=== PATIENT | female | born 1975 | race Caucasian/White ===

== ENCOUNTER 2023-02-20 16:56 | Emergency (ER) | payer BC, SELFPAY ==
[2023-02-20 16:57] VITALS: BP 109/68; PULSE 88; RESP 16; TEMP 36.2; O2SAT 99
[2023-02-20 17:01] VITALS: BMI 21.4
[2023-02-20 18:11] VITALS: BP 120/74; PULSE 69; RESP 14; O2SAT 92
[2023-02-20] MEDS: 0.9% Normal Saline 1,000 ML 1000 ML IV (19:15)
--- NOTE | 2023-02-20 19:20 | EKG12_ITS ---
Test Reason : SYNCOPE Blood Pressure : / mmHG Vent. Rate : 057 BPM Atrial Rate : 057 BPM P-R Int : 164 ms QRS Dur : 090 ms QT Int : 438 ms P-R-T Axes : 059 046 040 degrees QTc Int : 426 ms Sinus bradycardia Otherwise normal ECG Confirmed by HERMILA THAKUR, SUJIT ([id number]), editor greeting card COSTA GRIFFIN ([id number]) on 02/23/2023 11:25:02 AM Referred By: Confirmed By:SUJIT CLEANING MD
--- NOTE | 2023-02-20 19:21 | EDS_ITS ---
HPI History of Present Illness Chief Complaint: Syncope Narrative Narrative: Patient presents with lightheadedness when she stands up. She has had a diarrheal illness over the past 4 days, she has had fevers nausea vomiting and watery diarrhea 10-15 episodes per day. This has basically resolved since yesterday although patient still feels quite lightheaded. She was walking on the street and did sustain a syncopal episode, it was witnessed by bystanders and per EMS it seems like a brief loss of consciousness with a relatively rapid full recovery. No reported head injury. Patient does not have a headache. No palpitation patient is denying abdominal pain or any other injuries. [facility] Medical History (Updated 02/20/23 @ 20:[address] Shane Guillory MD) Arthritis Contact with and (suspected) exposure to other viral communicable diseases URI (upper respiratory infection) Home Medications NK 02/20/23 [History Last Taken Unknown] Allergy/AdvReac Type Severity Reaction Status Date / Time No Known Allergies Allergy Unverified 02/06/23 11:23 Family History (Updated 02/06/23 @ 11:27 by Aydee Castellano) Other Cancer Depression Diabetes Heart disease Hypertension Thyroid disorder Surgical History History of tonsillectomy and adenoidectomy Social History Smoking Status: Light Smoker (<10/day) ROS ROS ED ROS Narrative Past medical history: Reviewed Medications: Reviewed Social history: Noncontributory Review of systems: All systems negative except as indicated General: No fever Fevers that resolved. Lightheadedness is present visual changes ENT: No upper airway congestion, normal voice Neck: No neck pain Cardiovascular: No chest pain. No palpitations Respiratory: No shortness of breath or cough Gastrointestinal: GI symptoms that resolved Genitourinary: No dysuria Musculoskeletal: Denies myalgias no difficulty with ambulation Skin: No rash Neurological: No memory loss, confusion or any focal weakness Hematologic: No easy bleeding or easy bruising EXAM Physical Exam Narrative Exam Narrative: Physical exam General: Well nourished, Well developed, No Acute Distress Head: Normocephalic, Atraumatic Eyes: Conjunctiva not pale ENT: Dry mucous membranes Neck: Supple, Nontender, No lymphadenopathy Cardiovascular: Regular rate, Regular rhythm Respiratory: No distress, CTA bilaterally Abdomen: Soft, Nontender, Nondistended Back: Nontender, Normal Inspection. Negative for: CVA tenderness Extremities: Nontender, No edema Skin: Normal color, No rash Neurological: Alert, Normal Strength, Normal Sensation Psychological: Normal affect Const Vital Signs: 02/20/23 16:57 02/20/23 17:07 02/20/23 18:11 Temperature 97.2 F L Temperature Source Temporal Pulse Rate 88 69 Respiratory Rate 16 14 Respiratory Effort Normal Respiratory Pattern Normal Blood Pressure 109/68 120/74 Blood Pressure Mean 81 89 Pulse Ox 99 92 Oxygen Delivery Method Room Air Room Air 02/20/23 19:30 02/20/23 19:59 Temperature Temperature Source Pulse Rate 58 L 61 Respiratory Rate 18 17 Respiratory Effort Respiratory Pattern Blood Pressure 112/74 148/83 H Blood Pressure Mean 86 104 Pulse Ox 94 94 Oxygen Delivery Method Room Air Room Air MDM MDM MDM Narrative Medical decision making narrative: Patient is given IV fluids and significantly improved. Otherwise I do not see any other reasons for her syncopal episode there seems to be no cardiac reasons. Electrolytes are normal. Patient appears well. I will discharge her in stable condition she likely had a gastroenteritis which resolved but she still had residual dehydration. Lab Data Labs: Laboratory Results - last 24 hr 02/20/23 19:04 WBC 5.0 RBC 4.83 Hgb 14.5 Hct 42.8 MCV 88.6 MCH 30.0 MCHC 33.9 RDW Std Deviation 41.8 RDW Coeff of Xavier 12.8 Plt Count 198 MPV 10.4 Immature Gran % (Auto) 0.400 Neut % (Auto) 49.9 Lymph % (Auto) 34.6 Preble % (Auto) 12.1 H Eos % (Auto) 2.2 Baso % (Auto) 0.8 Absolute Neuts (auto) 2.5 Absolute Lymphs (auto) 1.72 Nucleated RBC % 0 Sodium 140 Potassium 2.8 L Chloride 105 Carbon Dioxide 24.0 Anion Gap 11 BUN 16 Creatinine 1.09 H Estim Creat Clear Calc 59.09 Est GFR (MDRD) Af Amer 69 Est GFR (MDRD) Non-Af 57 L BUN/Creatinine Ratio 14.7 Glucose 127 H Calcium 8.8 Total Bilirubin 0.60 AST 39 H ALT 50 Alkaline Phosphatase 58 Total Protein 6.9 Albumin 3.4 Globulin 3.5 Albumin/Globulin Ratio 1.0 Urine Color Yellow Urine Clarity Sl. Cloudy Urine pH 5.0 Ur Specific [place] 1.025 Urine Protein 30 H Urine Glucose (UA) Normal Urine Ketones 15 H Urine Occult Blood 10 H Urine Nitrite Negative Urine Bilirubin 1 H Urine Urobilinogen 4 H Ur Leukocyte Esterase 25 H Urine RBC 0-5 SEEN Urine WBC 0-5 SEEN Ur Squamous Epith Cells 0-5 SEEN Urine Bacteria 1+ Hyaline Casts 10-25 SEEN Urine Mucus 1+ Urine Test Negative Discharge Plan Triage Chief Complaint: Syncope ED Provider: Shane Guillory Dx/Rx/DC Orders Clinical Impression: Acute dehydration, Syncope Instructions: Causes of Syncope, Dehydration Prescriptions: No Action NK Primary Care Provider: Juice Garrido Referrals: Juice Garrido, PA [Primary Care Provider] - 3-5 Days Disposition Disposition: Home, Self Care
[2023-02-20 19:30] VITALS: BP 112/74; PULSE 58; RESP 18; O2SAT 94
[2023-02-20 19:34] LABS: Absolute Lymphocyte Count 1.72 X10^3/uL (0.83-4.51); Absolute Neutrophil Count 2.5 X10^3/uL (2.0-7.7); Basophil# 0.04 X10^3/uL; Basophil% 0.8 % (0-1); Eosinophil# 0.11 X10^3/uL; Eosinophils% 2.2 % (0-5); Hematocrit 42.8 % (37-47); Hemoglobin 14.5 g/dL (12.0-15.0); Lymphocyte # 1.72 X10^3/ul (0.83-4.51); Lymphocyte % 34.6 % (19-41); Mean Corp Hgb Conc 33.9 g/dL (32-36); Mean Corpuscular Volume 88.6 fL (81-99); Mean Platelet Vol. 10.4 fl (6.2-12.0); Monocyte% 12.1 % (0-10); NRBC Flagged by Analyzer 0 % (0-5); Neutrophil # 2.48 X10^3/uL (2.7-7.7); Neutrophil % 49.9 % (47-70); Platelet Count 198 K/mm3 (150-450); RBC Distribution Width CV 12.8 % (11.6-14.6); RBC Distribution Width SD 41.8 fl (35.1-43.9); Red Blood Count 4.83 M/mm3 (4.2-5.4)
[2023-02-20 19:48] LABS: Color, Urine Yellow (Yellow); Glucose, Dipstick Normal (Normal); Ketone-Dipstick 15 mg/dl (Negative); Leukocyte Esterase-Dipstick 25 /ul (Negative); Nitrite-Dipstick Negative (Negative); Occult Blood-Urine 10 /ul (Negative); Protein-Dipstick 30 mg/dl (Negative); Specific Gravity, Urine 1.025 (1.002-1.030); Urine Clarity Sl. Cloudy (Clear); Urine Urobilinogen 4 mg/dl (Normal)
[2023-02-20 19:54] LABS: AST(SGOT) 39 U/L (15-37); Alanine Aminotransfer ALT/SGPT 50 U/L (13-56); Albumin, Serum 3.4 g/dL (3.2-5.0); Alkaline Phosphatase 58 U/L (45-117); Anion Gap 11 (5-15); BUN 16 mg/dL (7-18); BUN/Creat Ratio 14.7 RATIO (10-20); Calcium,Total 8.8 mg/dL (8.5-10.1); Chloride 105 mmol/L (98-107); Creatinine, Serum 1.09 mg/dL (0.55-1.02); EST Glomerular Filtration Rate 57 mL/min (>60); Est Glom Filt Rate - Afr Amer 69 mL/min (>60); Estimated Creatinine Clearance 59.09 ml/min; Globulin 3.5 g/dL (2.2-4.2); Glucose 127 mg/dL (74-106); Potassium 2.8 mmol/L (3.5-5.1); Protein, Total 6.9 g/dL (6.4-8.2); Sodium Level 140 mmol/L (136-145); Urine Bilirubin Dipstick 1 mg/dL (Negative)
[2023-02-20 19:59] VITALS: BP 148/83; PULSE 61; RESP 17; O2SAT 94
[2023-02-20 19:59] LABS: Hyaline Cast 10-25 SEEN /lpf (0-5)
[2023-02-20 20:00] LABS: Bacteria 1+ /hpf (None Seen); Red Blood Cells-Urine 0-5 SEEN /hpf (0-5); White Blood Cells 0-5 SEEN /hpf (0-5)
[2023-02-20 20:01] LABS: Mucous, Urine 1+ /hpf (<or=2+); Squamous Epithelial Cells - UA 0-5 SEEN /hpf (5-10)
[2023-02-20 20:03] LABS: Internal QC Validated? YES +Cl - CLEAR BKGD; Pregnancy, Urine Negative Negative
[2023-02-20] MEDS: Potassium Chloride Oral Tablet 20 MEQ 60 MEQ PO (20:19)
[2023-02-20] MEDS: 0.9% Normal Saline 1,000 ML 999 ML IV (20:20)
[2023-02-20 21:08] VITALS: BP 113/80; PULSE 61; RESP 18; O2SAT 97
== END 2023-02-20 21:14 | disposition home or self-care (01) ==
PROVIDERS: Emergency Provider Emergency Medicine; PCP Physician Assistant; Visit Provider Emergency Medicine
DX: E86.0 Dehydration (principal); R55 Syncope and collapse; R19.7 Diarrhea, unspecified; R11.2 Nausea with vomiting, unspecified; F17.200 Nicotine dependence, unspecified, uncomplicated
CPT/HCPCS: 80053; 81001; 81025; 85025; 93005; 96360; 99285; J7030; A4216

== ENCOUNTER → 2023-04-05 | Outpatient (CLI) | payer BC, SELFPAY ==
[2023-04-05 12:24] LABS: Absolute Lymphocyte Count 2.25 X10^3/uL (0.83-4.51); Absolute Neutrophil Count 4.1 X10^3/uL (2.0-7.7); Basophil% 1.3 % (0-1); Eosinophil# 0.33 X10^3/uL; Eosinophils% 4.3 % (0-5); Hematocrit 46.6 % (37-47); Lymphocyte # 2.25 X10^3/ul (0.83-4.51); Lymphocyte % 29.6 % (19-41); Mean Corp Hgb Conc 32.2 g/dL (32-36); Mean Corpuscular Hgb 30.2 pg (27.0-32.0); Mean Corpuscular Volume 93.8 fL (81-99); Mean Platelet Vol. 9.8 fl (6.2-12.0); Monocyte# 0.79 X10^3/uL; Monocyte% 10.4 % (0-10); NRBC Flagged by Analyzer 0 % (0-5); Neutrophil % 53.9 % (47-70); Platelet Count 333 K/mm3 (150-450); RBC Distribution Width CV 13.2 % (11.6-14.6); RBC Distribution Width SD 45.6 fl (35.1-43.9); Red Blood Count 4.97 M/mm3 (4.2-5.4); White Blood Count 7.6 K/mm3 (4.4-11.0)
[2023-04-05 13:07] LABS: Vitamin D,25 Hydroxy 16.3 ng/mL
[2023-04-05 13:23] LABS: AST(SGOT) 12 U/L (15-37); Alanine Aminotransfer ALT/SGPT 21 U/L (13-56); Albumin, Serum 3.5 g/dL (3.2-5.0); Alkaline Phosphatase 65 U/L (45-117); Anion Gap 4 (5-15); BUN 12 mg/dL (7-18); BUN/Creat Ratio 17.9 RATIO (10-20); Calcium,Total 8.8 mg/dL (8.5-10.1); Chloride 111 mmol/L (98-107); Cholesterol 183 mg/dL (200); Creatinine, Serum 0.67 mg/dL (0.55-1.02); EST Glomerular Filtration Rate 100 mL/min (>60); Est Glom Filt Rate - Afr Amer 121 mL/min (>60); Globulin 3.6 g/dL (2.2-4.2); Glucose 105 mg/dL (74-106); High Density Lipoprotein 52 mg/dL; Potassium 4.7 mmol/L (3.5-5.1); Protein, Total 7.1 g/dL (6.4-8.2); Sodium Level 142 mmol/L (136-145); Thyroid Stim Hormone (TSH) 1.04 uIU/mL (0.358-3.74); Triglycerides 108 mg/dL; Very Low Density Lipoprotein 22 mg/dL (5-40)
== END | disposition home or self-care (01) ==
LOC: BIMLAB 10:21
PROVIDERS: PCP Internal Medicine; Referring Provider Internal Medicine; Visit Provider Internal Medicine
DX: E04.1 Nontoxic single thyroid nodule (principal); F32.1 Major depressive disorder, single episode, moderate; Z13.6 Encounter for screening for cardiovascular disorders; E87.6 Hypokalemia; F41.9 Anxiety disorder, unspecified
CPT/HCPCS: 36415; 80053; 80061; 82306; 84443; 85025

== ENCOUNTER → 2023-04-17 | Outpatient (CLI) | payer BC, SELFPAY ==
--- NOTE | 2023-04-17 15:15 | BI_ITS ---
MAMMOGRAPHY - BILATERAL SCREENING REASON FOR EXAM: Female, 47 years old. Routine annual screening examination. PERTINENT HISTORY: Aunt with breast cancer. Remote the right excisional breast biopsy. TECHNIQUE: Digital bilateral breast roxanna (3D mammographic acquisition) in the CC and MLO projections. 2-D mediolateral oblique (MLO) and craniocaudad (CC) views of both breasts were obtained. CAD: Full Field Digital Mammography with Computer Added Detection was performed. COMPARISON: Comparison is made with prior study dated July 20, 2017. FINDINGS: Breast Composition: There are scattered areas of fibroglandular density. There are no dominant masses or suspicious calcifications. Small benign-appearing right axillary lymph node. No other significant abnormalities are identified. There has been no significant change since the prior study. BI/SCRN MAMM (CAD)W/ROXANNA BILAT IMPRESSION: Stable bilateral screening mammogram. Yearly follow-up mammogram recommended. (A) ASSESSMENT CATEGORY: BIRADS Category 2: Benign. A letter regarding these results will be sent to the patient by the facility within 30 days. Approximately 10% of breast cancers are not detected by mammography. A normal mammogram should not delay biopsy of a clinically suspicious abnormality. [id number] Electronically Signed: Jose E Hurst MD at 8:14 EST ,
--- NOTE | 2023-04-17 15:43 | US_ITS ---
STUDY: THYROID ULTRASOUND REASON FOR EXAM: Female, 47 years old. thyroid nodule TECHNIQUE: Ultrasound evaluation of the thyroid was performed with real-time and static romo-scale imaging. COMPARISON: None. FINDINGS: RIGHT LOBE: The right lobe of the thyroid gland measures 4.9 x 1.7 x 1.5 cm. There is a homogeneous echotexture. There are multiple small, subcentimeter nodules identified within the right thyroid lobe with solid/cystic component, the largest seen in the middle pole measuring 0.5 x 0.5 x 0.3 cm and the second largest seen in the upper pole measuring 0.4 x 0.3 x 0.2 cm. The margins are regular with no internal color flow seen. There is peripheral color flow visualized. LEFT LOBE: The left lobe of the thyroid gland measures 4.7 x 2.2 x 1.7 cm. There is a homogeneous echotexture. Within the left thyroid lobe there are multiple nodules, largest seen within the middle pole measuring 2.4 x 1.8 x 1.2 cm with solid and cystic component and partial hypoechoic rim. The second is seen in the upper pole measuring 0.9 x 0.7 x 0.5 cm with predominantly solid component and trace cystic changes. The third largest nodule seen in the posterior aspect of the mid lower pole measuring 0.7 x 0.6 x 0.4 cm with partial cystic component and partial hypoechoic rim. The margins are regular with peripheral color flow and scattered internal flow. ISTHMUS: The isthmus measures 0.2 cm. Along the right neck with the is a lymph node lateral to the right thyroid gland measuring 2.4 x 1.2 x 0.4 cm. A lymph node lateral to the thyroid gland is seen measuring 1.5 x 1.2 x 0.4 cm. US/Thyroid IMPRESSION: Complex cystic lesion within the left mid lower thyroid lobe measuring up to 2.4 cm. In the absence of prior films for comparison and given enlargement of lymph nodes bilaterally, recommend follow-up for consultation for biopsy. Otherwise remainder of the nodules may be further assessed with short interval follow-up evaluation to assess stability. Electronically Signed: Marita Oshea MD at 1:26 EDT ,
== END | disposition home or self-care (01) ==
PROVIDERS: PCP Internal Medicine; Referring Provider Internal Medicine; Visit Provider Internal Medicine
DX: Z12.31 Encounter for screening mammogram for malignant neoplasm of breast (principal); E04.1 Nontoxic single thyroid nodule
CPT/HCPCS: 76536; 77063; 77067

== ENCOUNTER → 2023-05-16 | Outpatient (CLI) | payer BC, SELFPAY ==
--- NOTE | 2023-05-16 15:10 | FLU_PTH ---
PATIENT: CARLYN BECKER LOC: [facility] U#:[id number] AGE/SX: 47/F ROOM: RE05/16/[address]: Dr. Husam Dixon MD : 1975 BED: DIS: 05/16/2023 SPEC #: [id number] RECD: 05/16/23 16:58 STATUS: YAMILETH RELulú #: [id number] TUSHAR: 05/16/23 15:[address]: Husam Dixon DEPT: CYTOLOGY RECD BY: Donna Rodriguez ENTERED: 05/17/23 10:37 SP TYPE: Fluid OTHR DR: Dr. Apryl Hooks MD Tissues: A - Thyroid gland, NOS B - Thyroid gland, NOS Procedures: Special Stain Group II Surgery Specimen Level IV Cytospin Fluid Cytology Other HEADER OPERATION: Fine needle aspiration left thyroid PRE-OP DIAGNOSIS: Left thyroid nodule TISSUE SUBMITTED: A - Left thyroid fluid, B - Left thyroid slides x6 DIAGNOSIS CYTOLOGY A. Fine needle aspiration, left thyroid nodule (cytospin and cell block): Rare macrophages consistent with benign cyst contents. B. Fine needle aspiration, left thyroid nodule (smears): Consistent with benign follicular/colloid nodule with cystic change ([place] Category II). See comment. AM:edy 05/18/2023 COMMENT B. The [place] System for thyroid diagnostic categorization was used in the evaluation of this case. Adequate for evaluation. CYTOLOGY STUDY Slides are reviewed. CYTOLOGY GROSS A - Received is 2 ml of red cloudy fluid labeled with the patient's name and and designated per the requisition as left thyroid. Submitted for cytology preparation including cell block. B - Received are six smears labeled with the patient's name and designated per the requisition as left thyroid. Submitted for staining. / edy 05/17/2023 TC:5 CPT: 15137 x2, 77454
== END | disposition home or self-care (01) ==
PROVIDERS: PCP Internal Medicine; Visit Provider Surgery
DX: E04.1 Nontoxic single thyroid nodule (principal)
CPT/HCPCS: 88108; 88161; 88305; 88313

== ENCOUNTER 2024-12-28 11:45 | Emergency (ER) | payer BC, SELFPAY ==
[2024-12-28 11:46] VITALS: BP 104/90; PULSE 78; RESP 18; TEMP 36.9; O2SAT 98; BMI 40.3
--- NOTE | 2024-12-28 11:49 | EDS_ITS ---
HPI History of Present Illness Chief Complaint: Wound PFSH [facility] Medical History Degenerative disc disease, cervical Frequent headaches IBS (irritable bowel syndrome) Arthritis Home Medications ?Medication ?Instructions ?Recorded ?Last Taken ?Type bupropion HCl 150 mg tablet,12 hr 150 mg PO BID #90 ea 12/04/23 Unknown Rx sustained-release salicylic acid 17 % topical gel 1 applic topical DAILY #7 grams 12/04/23 Unknown Rx Allergy/AdvReac Type Severity Reaction Status Date / Time No Known Allergies Allergy Verified 12/28/24 11:47 Family History Grandfather Alcohol abuse Arthritis CVA (cerebral vascular accident) Respiratory disease Mother Anemia Asthma Heart disease Diabetes Respiratory disease Father Alcohol abuse Arthritis CVA (cerebral vascular accident) Respiratory disease Grandmother Arthritis Diabetes Thyroid disorder Ovarian cancer Uncle Myocardial infarction Aunt Breast cancer Other Cancer Depression Hypertension Surgical History H/O removal of cyst History of tonsillectomy and adenoidectomy Social History adopted: No household members: none current occupational status: employed current occupation: [employer] specialist pets and animals: Yes pets and animals: dog(s) sexually active: Yes Smoking Status: Former smoker Tobacco: How many years used: 30 Electronic Cigarette Use: not used quit status: considering quitting alcohol intake: never substance use type: marijuana caffeine: Yes (3) Type: carbonated beverages and coffee frequency: daily seatbelt use: always do you feel safe at home: Yes EXAM Physical Exam Const Vital Signs: 12/28/24 11:46 Temperature 98.4 F Temperature Source Oral Pulse Rate 78 Respiratory Rate 18 Blood Pressure 104/90 H Blood Pressure Mean 94 Pulse Ox 98 Oxygen Delivery Method Room Air MDM MDM MDM Narrative Medical decision making narrative: HISTORY OF PRESENT ILLNESS: Chief complaint: Left total 49-year-old female history of PCOS, IBS presents with concern for left second toe abnormality. She notes I ripped off toenail of left second toe. She further states it just needs cleaned out REVIEW OF SYSTEMS: Pertinent positives: Toe pain Pertinent negatives: [] PHYSICAL EXAM: Nursing triage notes reviewed, Vital signs reviewed Constitutional: please see mdm Extremities: No edema Neuro: Intact sensation L1-S1 dermatomal distributions. Intact 5/5 strength in hip flexion (T12-L3). Knee extension (L2-L4). Ankle dorsiflexion (L4-L5). Ankle plantar flexion (S1). Great toe extension (L5). 2+ patellar and Achilles DTRs. Skin: [] MEDICAL DECISION MAKING: Chief Complaint: please see HPI External records reviewed: Reviewed prior imaging studies. No recent [place] imaging the involved extremity Factors affecting care: As per HPI Social determinants of health: none History obtained from others: none Consults: none [facility] Narrative: The patient was initially hemodynamically stable, afebrile and nontoxic- appearing Exam [] Wound cleansed. []. Podiatry follow-up given. The patient and/or family, caregivers express understanding. The patient and/or family, caregivers agrees with the plan. Shared decision making: I will have a discussion with the patient and or visitors regarding risk/b enefits of further testing or admission. They will be made aware of of the risk/benefits inherent in this decision they will be given the opportunity to voice understanding. Total critical care time today provided was at least 0 minutes. This excludes separately billable procedures. Critical care time (if documented) is secondary to the patient having high probability of clinically significant/life threatening deterioration in the patient's condition which required my urgent intervention. Impression: 1. Acute left second toe pain Dispo: Discharge This note was generated with [employer]elo[employer] dictation software. It may contain incorrect words, spelling, and punctuation that were not noted in review of the chart prior to signing. Discharge Plan Triage Chief Complaint: Wound ED Provider: Anthony Pham Dx/Rx/DC Orders Prescriptions: No Action bupropion HCl 150 mg tablet sustained-release 12 hr 150 mg PO BID Qty: 90 1RF salicylic acid 17 % gel 1 applic topical DAILY Qty: 7 0RF Primary Care Provider: Apryl Hooks Referrals: Apryl Hooks MD [Primary Care Provider] - Print Language: Yakut
--- NOTE | 2024-12-28 11:49 | EX.ED.DYSGE1 ---
HPI History of Present Illness Chief Complaint: Wound PFSH [facility] Medical History Degenerative disc disease, cervical Frequent headaches IBS (irritable bowel syndrome) Arthritis Home Medications ?Medication ?Instructions ?Recorded ?Last Taken ?Type bupropion HCl 150 mg tablet,12 hr 150 mg PO BID #90 ea 12/04/23 Unknown Rx sustained-release salicylic acid 17 % topical gel 1 applic topical DAILY #7 grams 12/04/23 Unknown Rx Allergy/AdvReac Type Severity Reaction Status Date / Time No Known Allergies Allergy Verified 12/28/24 11:47 Family History Grandfather Alcohol abuse Arthritis CVA (cerebral vascular accident) Respiratory disease Mother Anemia Asthma Heart disease Diabetes Respiratory disease Father Alcohol abuse Arthritis CVA (cerebral vascular accident) Respiratory disease Grandmother Arthritis Diabetes Thyroid disorder Ovarian cancer Uncle Myocardial infarction Aunt Breast cancer Other Cancer Depression Hypertension Surgical History H/O removal of cyst History of tonsillectomy and adenoidectomy Social History adopted: No household members: none current occupational status: employed current occupation: [employer] consultant pets and animals: Yes pets and animals: dog(s) sexually active: Yes Smoking Status: Current every day smoker tobacco type: cigarettes Tobacco: How many years used: 30 Electronic Cigarette Use: not used quit status: considering quitting alcohol intake: never substance use type: marijuana caffeine: Yes (3) Type: carbonated beverages and coffee frequency: daily seatbelt use: always do you feel safe at home: Yes EXAM Physical Exam Const Vital Signs: 12/28/24 11:46 12/28/24 12:03 Temperature 98.4 F 98.4 F Temperature Source Oral Pulse Rate 78 78 Respiratory Rate 18 18 Blood Pressure 104/90 H 104/90 H Blood Pressure Mean 94 94 Pulse Ox 98 98 Oxygen Delivery Method Room Air MDM MDM MDM Narrative Medical decision making narrative: HISTORY OF PRESENT ILLNESS: Chief complaint: Left total 49-year-old female history of PCOS, IBS presents with concern for left second toe abnormality. She notes I ripped off toenail of left second toe. She further states it just needs cleaned out. Notes that she had minor trauma to the toe as she was walking yesterday. REVIEW OF SYSTEMS: Pertinent positives: Toe pain Pertinent negatives: Fever PHYSICAL EXAM: Nursing triage notes reviewed, Vital signs reviewed Constitutional: please see [facility] Extremities: No edema Neuro: Intact sensation L1-S1 dermatomal distributions. Intact 5/5 strength in hip flexion (T12-L3). Knee extension (L2-L4). Ankle dorsiflexion (L4-L5). Ankle plantar flexion (S1). Great toe extension (L5). 2+ patellar and Achilles DTRs. Skin: No erythema, no fluctuance, no drainage. Toenail shows significant trauma with loosening along the medial side however it is still intact. MEDICAL DECISION MAKING: Chief Complaint: please see [facility] External records reviewed: Reviewed prior imaging studies. No recent adVanced imaging the involved extremity Factors affecting care: As per [facility] Social determinants of health: none History obtained from others: none Consults: none [facility] Narrative: The patient was initially hemodynamically stable, afebrile and nontoxic-appearing. Exam with a partial toenail avulsion of the left second digit. No surrounding erythema or signs of infection. Exam with an overall intact toenail noted approximate 50% avulsion however there is some trauma noted. No sign of infection. Discussed risk and benefits of toenail removal. Discussed risk of increased infection, pain. Discussed that there is no emergent need to remove her toenail. Wound cleansed. Offered x-ray to rule out fracture dislocation however patient refused stating she does not think is broken. Podiatry follow-up given. Prophylactic antibiotics given. The patient and/or family, caregivers express understanding. The patient and/or family, caregivers agrees with the plan. Shared decision making: I will have a discussion with the patient and or visitors regarding risk/benefits of further testing or admission. They will be made aware of of the risk/benefits inherent in this decision they will be given the opportunity to voice understanding. Total critical care time today provided was at least 0 minutes. This excludes separately billable procedures. Critical care time (if documented) is secondary to the patient having high probability of clinically significant/life threatening deterioration in the patient's condition which required my urgent intervention. Impression: 1. Acute left second toe pain 2. Partial toenail avulsion Dispo: Discharge This note was generated with Allegorithmic dictation software. It may contain incorrect words, spelling, and punctuation that were not noted in review of the chart prior to signing. Discharge Plan Triage Chief Complaint: Wound ED Provider: Anthony Pham Dx/Rx/DC Orders Instructions: ED Detached Fingernail or Toenail Prescriptions: No Action bupropion HCl 150 mg tablet sustained-release 12 hr 150 mg PO BID Qty: 90 1RF salicylic acid 17 % gel 1 applic topical DAILY Qty: 7 0RF Primary Care Provider: Apryl Hooks Referrals: Terrell Qureshi DPM [Med Staff - Active Staff] - Activity Restrictions/Additional Instructions: Thank you for trusting us with your care today! Please keep the involved area clean and dry. Please use topical soap and water. Keep the area covered. Please take Tylenol (2 pills, 650 mg), ibuprofen (2 pills, 400 mg) every 6 hours as needed for pain and fever control. Please return to the emergency department if your symptoms change or worsen. Please follow with Podiatry (Dr. Qureshi) for further outpatient evaluation and management. Print Language: Latvian Disposition Disposition: Home, Self Care
[2024-12-28 12:03] VITALS: BP 104/90; PULSE 78; RESP 18; TEMP 36.9; O2SAT 98
--- OUTSIDE RECORDS SUMMARY | 2024-12-28 12:17 | XMS RPT_ITS | CCD ---
Author Organization [facility] Care Team Providers Care Nitroglycerin Separator Operator Name Role Phone DAIJA Collins Primary Care Provider DAIJA Collins Referring Provider DAIJA Winter Attending Provider DAIJA Winter Attending Provider Dr. Apryl Hooks Attending Provider DAIJA Collins Primary Care Provider DAIJA Collins Referring Provider [phone] DAIJA Winter Attending Provider Dr. Apryl Hooks Attending Provider Dr. Apryl Hooks Primary Care Provider Dr. Apryl Hooks Referring Provider Dr. Husam Dixon Attending Provider Dustin Bolton Attending Unavailable Apryl Hooks Primary Care Unavailable Apryl Hooks Referring Unavailable Apryl Hooks Primary Care Unavailable Apryl Hooks Referring Unavailable Dustin Bolton Attending Unavailable Apryl Hooks Primary Care Unavailable Apryl Hooks Attending Unavailable Apryl Hooks Referring Unavailable Medications Current Medications Medication Drug Class(es) Dates Sig (Normalized) Sig (Original) Point Blank (Nk) (1 source) Start: 02-20-2023 Point Blank (Nk) A ctive February 20, 2023 12:00am Completed/Discontinued Medications Medication Drug Class(es) Dates Sig (Normalized) Sig (Original) benzonatate 200 mg oral capsule (4 sources) Non-narcotic Antitussive Start: 3 End: 3 take 200 mg by mouth three times daily Benzonatate Discontinued 200 MG PO THREE TIMES A DAY February 05, 2023 11:00pm February 20, 2023 6:31pm 12 hr buPROPion hydrochloride 150 mg extended release oral tablet (3 sources) Aminoketone Start: 3 End: 3 take 1 tablet by mouth once daily, then take 1 tablet by mouth twice daily Bupropion Hcl (Wellbutrin Sr) 150 mg tablet sustained-release 12 hr Discontinued 150 MG PO TWICE A DAY April 04, 2023 11:00pm May 16, 2023 3:00pm take 1 tablet once daily for 3 days, then increase to 1 tablet twice daily methylPREDNISolone 4 mg oral tablet (4 sources) Corticosteroid Start: 3 End: 3 take 1 tablet by mouth once Methylprednisolone (Medrol (Alphonse)) 4 mg tablets,dose pack Discontinued 0 PO per package directions February 05, 2023 11:00pm February 20, 2023 6:31pm PO PER PKG DIR Problems Problem Classification Problem Date Documented Da te Episodic/Chronic Administrative/social admission (3 sources) Persons encountering health services in other specified circumstances; Translations: [Other reasons for seeking consultation] 04-05-2023 Episodic Anxiety disorders (4 sources) Anxiety disorder, unspecified; Translations: [Anxiety state, unspecified] Onset: 07-09-2024 04-05-2023 Chronic Fluid and electrolyte disorders (7 sources) Dehydration; Translations: [Dehydration] 02-20-2023 Episodic Immunizations and screening for infectious disease (8 sources) Contact with and (suspected) exposure to other viral communicable diseases; Translations: [Contact with or suspected exposure to other viral communicable disease] 02-06-2023 Episodic Menopausal disorders (4 sources) Menopausal and female climacteric states; Translations: [Symptomatic menopausal or female climacteric states] Onset: 07-09-2024 04-05-2023 Chronic Mood disorders (4 sources) Major depressive disorder, single episode, moderate; Translations: [Major depressive affective disorder, single episode, moderate] Onset: 07-09-2024 04-05-2023 Chronic Nutritional deficiencies (1 source) Vitamin D deficiency, unspecified; Translations: [Vitamin D deficiency, unspecified] Onset: 07-09-2024 Chronic Other endocrine disorders (3 sources) Polycystic ovary syndrome; Translations: [Polycystic ovarian syndrome] 04-05-2023 Chronic Other gastrointestinal disorders (3 sources) Irritable bowel syndrome; Translations: [Irritable bowel syndrome without diarrhea] 04-05-2023 Chronic Other screening for suspected conditions (not mental disorders or infectious disease) (12 sources) Encounter for screening for malignant neoplasm of colon; Translations: [Special screening for malignant neoplasms of colon] 04-05-2023 Episodic Other skin disorders (1 source) Disorder of the skin and subcutaneous tissue, unspecified; Translations: [Disorder of the skin and subcutaneous tissue, unspecified] Onset: 07-09-2024 Episodic Other upper respiratory infections (8 sources) Upper respiratory infection; Translations: [Acute upper respiratory infection, unspecified] 02-06-2023 Episodic Residual codes; unclassified (3 sources) Immunization not carried out because of patient refusal; Translations: [Vaccination not carried out because of patient refusal] 04-05-2023 Episodic Screening and history of mental health and substance abuse codes (1 source) Personal history of nicotine dependence; Translations: [Personal history of nicotine dependence] Onset: 07-09-2024 Episodic Substance-related disorders (6 sources) Cigarette smoker ; Translations: [Nicotine dependence, cigarettes, uncomplicated] 04-05-2023 Chronic Syncope (4 sources) Syncope; Translations: [Syncope and collapse] 02-20-2023 Episodic Thyroid disorders (7 sources) Thyroid nodule; Translations: [Nontoxic single thyroid nodule] 04-05-2023 Chronic Results Test Name Value Interpretation Reference Range Facility Urgent Care Visit Reporton 0 11-23-2023 Urgent Care Visit Report [facility] [address], [address] [place], [place] [address] OFFICE VISIT Date of Service: 11/22/23 MR#: [id number] Acct: [id number] Name: CARLYN BECKER Rep #: [id number] : 1975 Provider: DAIJA Agrawal Age/Sex: 48/F [place] [facility] Status: Signed Intake Vital Signs 05/23/23 15:22 Height 5 ft 4 in Weight: 226 lb 4 oz BMI 38.8 BP 114/62 Blood Pressure Location Lt brachial Position Sitting Respiration 16 Pulse 77 Pulse Source Monitor Temp 97.6 F L Temp Source Temporal Pulse Oximetry (%) 97 Oxygen Delivery Method room air Intake Visit 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 Chief Complaint: Preemployment physical Allergies No Known Allergies Allergy (Unverified 05/23/23 15:21) PFSH Medical History Arthritis Degenerative disc disease, cervical Frequent headaches IBS (irritable bowel syndrome) Surgical History H/O removal of cyst History of tonsillectomy and adenoidectomy Family History Grandfather Alcohol abuse Arthritis CVA (cerebral vascular accident) Respiratory disease Mother Anemia Asthma Heart disease Diabetes Respiratory disease Father Alcohol abuse Arthritis CVA (cerebral vascular accident) Respiratory disease Grandmother Arthritis Diabetes Thyroid disorder Ovarian cancer Uncle Myocardial infarction Aunt Breast cancer Other Cancer Depression Hypertension Social History (Updated 05/23/23 @ 15:22 by Rosemary Winchester MA) adopted: No household members: none current occupational status: employed current occupation: [employer] pets and animals: Yes pets and animals: dog(s) sexually active: Yes Smoking Status: Former smoker Tobacco: How many years used: 30 Electronic Cigarette Use: not used quit status: considering quitting alcohol intake: never substance use type: marijuana caffeine: Yes (3) Type: carbonated beverages and coffee frequency: daily seatbelt use: always do you feel safe at home: Yes HPI HPI Chief Complaint: Preemployment physical Details: CARLYN BEKCER, is a 48 F who presents to the office today for preemployment physical. Please see corresponding scanned documents with today's date. Office Procedures Physical Exam Coding PE Coding Pre-employment PE: Yes Coding Level of Care Code No Charge Diagnoses Encounter for pre-employment health screening examination Z02.1 Assessment and Plan Assessment and Plan (1) Encounter for pre-employment health screening examination: Status: Acute 11/23/23 0703 Date Dustin Sherman Signature: Date (if applicable) CC: [facility] Office Visit Reporton 2023 Office Visit Report [facility] [address] [place] [address] OFFICE VISIT Date of Service: 11/22/23 MR#: [id number] Acct: [id number] Patient: CARLYN BECKER Rep #: [id number] : 1975 Provider: DAIJA Agrawal Age/Sex: 48/F Location[place] [facility] Status: Signed Intake Vital Signs 05/23/23 15:22 Height 5 ft 4 in Weight: 226 lb 4 oz BMI 38.8 BP 114/62 Blood Pressure Location Lt brachial Position Sitting Respiration 16 Pulse 77 Pulse Source Monitor Temp 97.6 F L Temp Source Temporal Pulse Oximetry (%) 97 Oxygen Delivery Method room air Intake Visit 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 Apryl whitfield MD Age/Sex: 48/F Location[place] [facility] Status: Signed Intake Vital Signs 05/23/23 15:22 12/04/23 15:23 Height 5 ft 4 in 5 ft 4 in Weight: 238 lb BMI 40.8 BP 114/70 Blood Pressure Location Lt brachial Position Sitting Respiration 14 Pulse 68 Pulse Source Monitor Temp 97.3 F L Temp Source Temporal Pulse Oximetry (%) 98 Oxygen Delivery Method room air Intake Visit Reasons: 6 M FU Chief Complaint: 6 week f/u Dismantler Required: No Is patient in pain?: No Allergies No Known Allergies Allergy (Unverified 12/04/23 15:19) Medications ???Medication ???Instructions ???Recorded ???Confirmed ???Type bupropion HCl 150 mg tablet,12 hr 150 mg PO BID #90 ea 12/04/23 12/04/23 Rx sustained-release salicylic acid 17 % topical gel 1 applic topical DAILY #7 grams 12/04/23 12/04/23 Rx Nurse's Note: needs refill Has a growth on L deltoid that she wants looked at. It is raised and white. Has been there a couple months. It has grown and itched. [facility] Medical History Degenerative disc disease, cervical Frequent headaches IBS (irritable bowel syndrome) Arthritis Surgical History H/O removal of cyst History of tonsillectomy and adenoidectomy Family History Grandfather Alcohol abuse Arthritis CVA (cerebral vascular accident) Respiratory disease Mother Anemia Asthma Heart disease Diabetes Respiratory disease Father Alcohol abuse Arthritis CVA (cerebral vascular accident) Respiratory disease Grandmother Arthritis Diabetes Thyroid disorder Ovarian cancer Uncle Myocardial infarction Aunt Breast cancer Other Cancer Depression Hypertension Social History adopted: No household members: none current occupational status: employed current occupation: [employer] pets and animals: Yes pets and animals: dog(s) sexually active: Yes Smoking Status: Former smoker Tobacco: How many years used: 30 Electronic Cigarette Use: not used quit status: considering quitting alcohol intake: never substance use type: marijuana caffeine: Yes (3) Type: carbonated beverages and coffee frequency: daily seatbelt use: always do you feel safe at home: Yes HPI HPI Chief Complaint: 6 week f/u Details: CARLYN BECKER, is a 48 F who presents to the office today for a follow up. She is up to date on her routine blood work and still needs to schedule her colonoscopy/pap smear. She reports her insurance will be changing and she will schedule them afterwards. She previously declined her COVID vaccines. She has remained off her cigarettes without problems. She does need refills today. She reports she is eating healthy and staying active. She reports her mental health has been doing much better. She continues to do well on her medication. She is following with the counselor and feels the combination has really helped. She denies any current concerns about depression or anxiety, nor any thoughts of suicide. She reports her hot flashes have been about the same. She reports she just seems to get hot and 'feels like she is going to explode.' She reports she does get some occasional night sweats, but most of the time, it is just feeling hot. She doesn't take or do anything for her symptoms. She reports she still gets menstrual periods, but reports they are irregular and getting less. She states she isn't as irritable. The patient has a spot on her arm that she would like to have looked at. She reports she thought it was just a pimple. She initially scratched it off, but it came back, but seems to be a bit bigger. She thinks it might look like a wart. She reports it has been there for a couple of months. She reports the area it is itchy without any pain. She denies any open areas or drainage at all. She has no other questions or concerns at this time. ROS Const Constitutional: Positive for night sweats and weight change (12 pound weight gain); No body ache, chills, excessive sweating, fatigue, fever(s), frequent falls, headache(s), snoring, weakness, sleep problems or change in appetite Eyes Eyes: No blurry vision, change in vision, eye pain or Light sensitivity ENT ENT: No abnormal hearing, ear or mastoid pain, tinnitus, nasal congestion, headache(s), neck pain or sore throat Resp Respiratory: Positive for cough; No shortness of breath, (more content not included)... [facility] Absolute lymphocyte countOrd ered By: Apryl Hooks on 04-05-2023 Lymphocytes Auto (Unsp spec) [#/Vol] 2.25 10*3/uL 0.83-4.51 [facility] Basophil percentageOrdered B y: Apryl Hooks on 04-05-2023 Basophils/100 WBC (Bld) 1.3 % 0-1 [facility] Bilirubin [Mass/Vol] 0.50 mg/dL 0.20-1.00 [facility] Comment on above: For patients on eltr ombopag therapy, use of Dimension [place] TBIL is not recommended. Chloride [Moles/Vol] 111 mmol/L 98-107 [facility] Cholesterol [Mass/Vol] 183 mg/dL <200 [facility] Comment on above: <200 mg/dL Desirable 200-240 mg/dL Borderline >240 mg/dL High Risk Eosinophils/100 WBC (Bld) 4.3 % 0-5 [facility] Glucose [Mass/Vol] 105 mg/dL 74-106 [facility] Comment on above: Fasting Glucose resu lt from 100 to 125 mg/dL suggests IMPAIRED HOMEOSTASIS per A.D.A. criteria. Neutrophils (Bld) [#/Vol] 4.1 10*3/uL 2.0-7.7 [facility] Neutrophils/100 WBC (Bld) 53.9 % 47-70 [facility] Potassium [Moles/Vol] 4.7 mmol/L 3.5-5.[address] [facility] Protein [Mass/Vol] 7.1 g/dL 6.4-8.2 [facility] Sodium [Moles/Vol] 142 mmol/L 136-145 [facility] Triglyceride [Mass/Vol] 108 mg/dL <199 [facility] Comment on above: The drugs N-Acetylcy steine and Metamizole may falsely depress this assay.Serum Triglycerides Reference Interval Normal <150 mg/dL Borderline high 150 - 199 mg/dL High 200 - 499 mg/dL Very High > or = 500 mg/dL WBC (Bld) [#/Vol] 7.6 10*3/uL 4.4-11.0 [facility] Blood erythrocytes count (nu mber/volume)Ordered By: Apryl Hooks on 04-05-2023 RBC (Bld) [#/Vol] 4.97 10*6/uL 4.2-5.4 [facility] Blood hemoglobin measurement (mass/volume)Ordered By: Apryl Hooks on 04-05-2023 Hemoglobin (Bld) [Mass/Vol] 15.0 g/dL 12.0-15.0 [facility] Blood lymphocytes/100 leukoc ytesOrdered By: Apryl Hooks on 04-05-2023 Lymphocytes/100 WBC (Bld) 29.6 % 19-41 [facility] Blood monocytes/100 leukocyt esOrdered By: Apryl Hooks on 04-05-2023 Monocytes/100 WBC (Bld) 10.4 % 0-10 [facility] Blood platelet mean volumeOr dered By: Apryl Hooks on 04-05-2023 Platelet mean volume (Bld) [Entitic vol] 9.8 fL 6.2-12.0 [facility] Determination of erythrocyte mean corpuscular volume (MCV)Ordered By: Apryl Hooks on 04-05-2023 MCV (RBC) [Entitic vol] 93.8 fL 81-99 [facility] Hematocrit Auto (Bld) [Volum e fraction]Ordered By: Apryl Hoosk on 04-05-2023 Hematocrit (Bld) [Volume fraction] 46.6 % 37-47 [facility] - Chemistry and C hemistry - challengeOrdered By: Apryl Hooks on 04-05-2023 ALP [Catalytic activity/Vol] 65 U/L 45-117 [facility] ALT [Catalytic activity/Vol] 21 U/L 13-56 [facility] CO2 [Moles/Vol] 27.0 mmol/L 21.0-32.0 [facility] Globulin (S) [Mass/Vol] 3.6 g/dL 2.2-4.2 [facility] Urea nitrogen/Creatinine [Mass ratio] 17.9 mg/mg 10-20 [facility] - Hematology and Cell countsOrdered By: Apryl Hooks on 04-05-2023 Erythrocyte distribution width (RBC) [Entitic vol] 45.6 fL 35.1-43.9 [facility] Erythrocyte distribution width (RBC) [Ratio] 13.2 % 11.6-14.6 [facility] Immature granulocytes/100 WBC (Bld) 0.500 % 0.0-0.9 [facility] Comment on above: IG% - Immature Granu locytes (promyelocytes, myelocytes and metamyelocytes) > 1% indicates that a LEFT SHIFT is Present. MCH (RBC) [Entitic mass] 30.2 pg 27.0-32.0 [facility] Nucleated RBC/100 WBC (Bld) [Ratio] 0 % 0-5 [facility] MCHC Auto (RBC) [Mass/Vol]Or dered By: Apryl Hooks on 04-05-2023 MCHC (RBC) [Mass/Vol] 32.2 g/dL 32-[address] [facility] No Panel InformationOrdered By: Apryl Hooks on 04-05-2023 Estimated GFR (MDRD) Amer 121 mL/min >60 [facility] Comment on above: GFR Calc Estimated GFR (MDRD) Non-Af Amer 100 mL/min >60 [facility] Comment on above: Non- GFR Calc Thyroid Stimulating Hormone (TSH) 1.04 uIU/mL 0.358-3.74 [facility] Vitamin D 25-Hydroxy 16.3 ng/mL [facility] Comment on above: Vitamin D 25(OH) Sta tus Range Deficiency <20 ng/mL (50nmol/L) Insufficiency 20 - 30 ng/mL (50 - 75 nmol/L) Sufficiency 30 - 100 ng/mL (75 - 250 nmol/L) Toxicity >100 ng/mL (>250 nmol/L) Platelets bldOrdered By: Abhijit Hooks on 04-05-2023 Platelets (Bld) [#/Vol] 333 10*3/uL 150-450 [facility] Serum or plasma albumin rajesh urement (mass/volume)Ordered By: Apryl Hooks on 04-05-2023 Albumin [Mass/Vol] 3.5 g/dL 3.2-5.0 [facility] Serum or plasma albumin/glob ulin mass ratioOrdered By: Apryl Hooks on 04-05-2023 Albumin/Globulin [Mass ratio] 1.0 {ratio} 0.9-2.4 [facility] Serum or plasma calcium rajesh urement (mass/volume)Ordered By: Apryl Hooks on 04-05-2023 Calcium [Mass/Vol] 8.8 mg/dL 8.5-10.1 [facility] Serum or plasma cholesterol in HDL measurement (mass/volume)Ordered By: Apryl Hooks on 04-05-2023 Cholesterol in HDL [Mass/Vol] 52 mg/dL >40 [facility] Comment on above: The drugs N-Acetylcy steine and Metamizole may falsely depress this assay. Reference Range HDL <40 mg/dL Low HDL Cholesterol HDL >or= 60 mg/dL High HDL Cholesterol Serum or plasma cholesterol in VLDL measurement (mass/volume)Ordered By: Apryl Hooks on 04-05-2023 Cholesterol in VLDL [Mass/Vol] 22 mg/dL 5-40 [facility] Serum or plasma creatinine m easurement (mass/volume)Ordered By: Apryl Hooks on 04-05-2023 Creatinine [Mass/Vol] 0.67 mg/dL 0.55-1.[address] [facility] Comment on above: The validity of the calculated GFR & GFRAA in patients over 70 years has not been determined. Clinical correlation is essential. Serum or plasma low density lipoprotein (LDL) cholesterol measurement (mass/volume)Ordered By: Apryl Hooks on 04-05-2023 Cholesterol in LDL [Mass/Vol] 109 mg/dL 0-130 [facility] Serum or plasma urea nitroge n measurement (mass/volume)Ordered By: Apryl Hooks on 04-05-2023 Urea nitrogen [Mass/Vol] 12 mg/dL 7-18 [facility] Thin prep Papanicolaou smear with manual screeningOrdered By: Apryl Hooks on 04-05-2023 Thin prep Papanicolaou smear with manual screening 12 U/L 15-37 [facility] Thin prep Papanicolaou smear with manual screening 4 5-15 [facility] Absolute lymphocyte countOrd ered By: Shane Guillory on 02-20-2023 Lymphocytes Auto (Unsp spec) [#/Vol] 1.72 10*3/uL 0.83-4.51 [facility] Basophil percentageOrdered B y: Shane Guillory on 02-20-2023 Basophil percentage 0-5 SEEN /hpf 0-5 [facility] Basophils/100 WBC (Bld) 0.8 % 0-1 [facility] Bilirubin [Mass/Vol] 0.60 mg/dL 0.20-1.00 [facility] Comment on above: For patients on eltr ombopag therapy, use of Dimension [place] TBIL is not recommended. Chloride [Moles/Vol] 105 mmol/L 98-107 [facility] Eosinophils/100 WBC (Bld) 2.2 % 0-5 [facility] Glucose [Mass/Vol] 127 mg/dL 74-106 [facility] Comment on above: Fasting Glucose resu lt greater than or equal to 126 mg/dL suggests DIABETES MELLITUS per A.D.A. criteria. Neutrophils (Bld) [#/Vol] 2.5 10*3/uL 2.0-7.7 [facility] Neutrophils/100 WBC (Bld) 49.9 % 47-70 [facility] Potassium [Moles/Vol] 2.8 mmol/L 3.5-5.[address] [facility] Protein [Mass/Vol] 6.9 g/dL 6.4-8.2 [facility] Sodium [Moles/Vol] 140 mmol/L 136-145 [facility] WBC (Bld) [#/Vol] 5.0 10*3/uL 4.4-11.0 [facility] Bilirubin Test strip Ql (U)O rdered By: Shane Guillory on 02-20-2023 Bilirubin Ql (U) 1 mg/dL Negative [facility] Comment on above: COLOR OF URINE MAY A FFECT DIPSTICK RESULTS. Blood erythrocytes count (nu mber/volume)Ordered By: Shane Guillory on 02-20-2023 RBC (Bld) [#/Vol] 4.83 10*6/uL 4.2-5.4 [facility] Blood hemoglobin measurement (mass/volume)Ordered By: Shane Guillory on 02-20-2023 Hemoglobin (Bld) [Mass/Vol] 14.5 g/dL 12.0-15.0 [facility] Blood lymphocytes/100 leukoc ytesOrdered By: Shane Guillory on 02-20-2023 Lymphocytes/100 WBC (Bld) 34.6 % 19-41 [facility] Blood monocytes/100 leukocyt esOrdered By: Shane Guillory on 02-20-2023 Monocytes/100 WBC (Bld) 12.1 % 0-10 [facility] Blood platelet mean volumeOr dered By: Shane Guillory on 02-20-2023 Platelet mean volume (Bld) [Entitic vol] 10.4 fL 6.2-12.0 [facility] Determination of erythrocyte mean corpuscular volume (MCV)Ordered By: Shane Guillory on 02-20-2023 MCV (RBC) [Entitic vol] 88.6 fL 81-99 [facility] Hematocrit Auto (Bld) [Volum e fraction]Ordered By: Shane Guillory on 02-20-2023 Hematocrit (Bld) [Volume fraction] 42.8 % 37-47 [facility] Hyaline casts LM.LPF (Urine sed) [#/Area]Ordered By: Shane Guillory on 02-20-2023 Hyaline casts (Urine sed) [#/Area] 10 /[LPF] 0-5 [facility] Ketones Test strip Ql (U)Ord ered By: Shane Guillory on 02-20-2023 Ketones Ql (U) 15 mg/dl Negative [facility] - Chemistry and C hemistry - challengeOrdered By: Shane Guillory on 02-20-2023 ALP [Catalytic activity/Vol] 58 U/L 45-117 [facility] ALT [Catalytic activity/Vol] 50 U/L 13-56 [facility] CO2 [Moles/Vol] 24.0 mmol/L 21.0-32.0 [facility] Globulin (S) [Mass/Vol] 3.5 g/dL 2.2-4.2 [facility] HCG ( test) Ql (U) Negative [facility] Comment on above: Very dilute urine sp ecimens, as indicated by a low specificgravity, may not contain architectural representative levels of hCG. If is still suspected, a first morning urinespecimen should be collected 48 hours later and tested. Urea nitrogen/Creatinine [Mass ratio] 14.7 mg/mg 10-20 [facility] - Hematology and Cell countsOrdered By: Shane Guillory on 02-20-2023 Erythrocyte distribution width (RBC) [Entitic vol] 41.8 fL 35.1-43.9 [facility] Erythrocyte distribution width (RBC) [Ratio] 12.8 % 11.6-14.6 [facility] Immature granulocytes/100 WBC (Bld) 0.400 % 0.0-0.9 [facility] Comment on above: IG% - Immature Granu locytes (promyelocytes, myelocytes and metamyelocytes) > 1% indicates that a LEFT SHIFT is Present. MCH (RBC) [Entitic mass] 30.0 pg 27.0-32.0 [facility] Nucleated RBC/100 WBC (Bld) [Ratio] 0 % 0-5 [facility] MCHC Auto (RBC) [Mass/Vol]Or dered By: Shane Guillory on 02-20-2023 MCHC (RBC) [Mass/Vol] 33.9 g/dL 32-[address] [facility] Mucus LM Ql (Urine sed)Order ed By: Shane Guillory on 02-20-2023 Mucus Ql (Urine sed) 1+ /hpf [facility] Nitrite Test strip Ql (U)Ord ered By: Shane Guillory on 02-20-2023 Nitrite Ql (U) Negative Negative [facility] No Panel InformationOrdered By: Shane Guillory on 02-20-2023 Estimated Creatinine Clearance Calc 59.09 ml/min [facility] Estimated GFR (MDRD) Amer 69 mL/min >60 [facility] Comment on above: GFR Calc Estimated GFR (MDRD) Non-Af Amer 57 mL/min >60 [facility] Comment on above: Non- GFR Calc Platelets bldOrdered By: Joanna Guillory on 09-05-2023 Platelets (Bld) [#/Vol] 198 10*3/uL 150-450 [facility] Protein Test strip Ql (U)Ord ered By: Shane Guillory on 02-20-2023 Protein Ql (U) 30 mg/dl Negative [facility] Serum or plasma albumin rajesh urement (mass/volume)Ordered By: Shane Guillory on 02-20-2023 Albumin [Mass/Vol] 3.4 g/dL 3.2-5.0 [facility] Serum or plasma albumin/glob ulin mass ratioOrdered By: Shane Guillory on 02-20-2023 Albumin/Globulin [Mass ratio] 1.0 {ratio} 0.9-2.4 [facility] Serum or plasma calcium rajesh urement (mass/volume)Ordered By: Shane Guillory on 02-20-2023 Calcium [Mass/Vol] 8.8 mg/dL 8.5-10.1 [facility] Serum or plasma creatinine m easurement (mass/volume)Ordered By: Shane Guillory on 02-20-2023 Creatinine [Mass/Vol] 1.09 mg/dL 0.55-1.[address] [facility] Comment on above: The validity of the calculated GFR & GFRAA in patients over 70 years has not been determined. Clinical correlation is essential. Serum or plasma urea nitroge n measurement (mass/volume)Ordered By: Shane Guillory on 02-20-2023 Urea nitrogen [Mass/Vol] 16 mg/dL 7-18 [facility] Squamous epithelial cells de tection in urine sediment by light microscopyOrdered By: Shane Guillory on 02-20-2023 Epithelial cells.squamous LM Ql (Urine sed) 0-5 SEEN /hpf 5-10 [facility] Thin prep Papanicolaou smear with manual screeningOrdered By: Shane Guillory on 02-20-2023 Thin prep Papanicolaou smear with manual screening 39 U/L 15-37 [facility] Thin prep Papanicolaou smear with manual screening 11 5-15 [facility] Urine blood detectionOrdered By: Shane Guillory on 02-20-2023 RBC Ql (U) 10 /ul Negative [facility] RBC Ql (U) 0-5 SEEN /hpf 0-5 [facility] Urine clarityOrdered By: Joanna Guillory on 02-20-2023 Clarity (U) Sl. Cloudy Clear [facility] Urine color determinationOrd ered By: Shane Guillory on 02-20-2023 Color (U) Yellow Yellow [facility] Urine glucose detectionOrder ed By: Shane Guillory on 02-20-2023 Glucose Ql (U) Normal mg/dl Normal [facility] Urine leukocyte esterase det ection by dipstickOrdered By: Shane Guillory on 02-20-2023 Leukocyte esterase Test strip Ql (U) 25 /ul Negative [facility] Urine pHOrdered By: Shane delacruz on 02-20-2023 pH (U) 5.0 [pH] 5.0 - 8.0 [facility] Urine sediment bacteria coun t by microscopy (number/high power field)Ordered By: Shane Guillory on 02-20-2023 Bacteria LM.HPF (Urine sed) [#/Area] 1 /[HPF] None Seen [facility] Urine specific gravity measu rementOrdered By: Shane Guillory on 02-20-2023 Specific gravity (U) [Rel density] 1.025 1.002-1.030 [facility] Urobilinogen Auto test strip Ql (U)Ordered By: Shane Guillory on 02-20-2023 Urobilinogen Ql (U) 4 mg/dl Normal [facility] - Microbiology an d Antimicrobial susceptibilityon 02-06-2023 SARS-CoV-2 (COVID-19) RNA RITO+probe Ql (Unsp spec) Not detected [facility] No Panel Informationon 02-06 Influenza Types A,B Rapid (Clinic) Not detected [facility] Vital Signs Date Time Vital Sign Value Performing Clinician Faci lity 05-16-2023 14:59-0500 Body height 162.56 cm PA CHRYSTAL CHOE Work Phone: [facility] 05-16-2023 14:59-0500 Body mass index (BMI) [Ratio] 38.2 kg/m2 PA CHRYSTAL Garrido PA Work Phone: [facility] 05-16-2023 14:59-0500 Body weight 101.15 kg PA CHRYSTAL CHOE Work Phone: [facility] 05-16-2023 14:59-0500 Diastolic blood pressure 86 mm[Hg] PA NA Garrido PA Work Phone: 4(869)436-741461 [place] [address] 05-16-2023 14:59-0500 Respiratory rate 18 /min PA NA Garrido PA Work Phone: [facility] 05-16-2023 14:59-0500 Systolic blood pressure 122 mm[Hg] PA NA Garrido PA Work Phone: 5(801)157-665133 [place] [address] 04-05-2023 09:44-0400 Body height 162.56 cm PA NA Garrido PA Work Phone: 2(336)887-374033 [place] [address] 04-05-2023 09:44-0400 Body mass index (BMI) [Ratio] 39.9 kg/m2 PA NA Garrido PA Work Phone: 4(327)360-227733 [place] [address] 04-05-2023 09:44-0400 Body temperature 98.4 [degF] PA NA Garrido PA Work Phone: 4(439)467-328561 [place] [address] 04-05-2023 09:44-0400 Body weight 105.68 kg PA NA Garrido PA Work Phone: 4(504)418-134333 [place] [address] 04-05-2023 09:44-0400 Diastolic blood pressure 62 mm[Hg] PA NA Garrido PA Work Phone: 7(671)278-949433 [place] [address] 04-05-2023 09:44-0400 Heart rate 68 /min PA NA Garrido PA Work Phone: 9(762)703-407233 [place] [address] 04-05-2023 09:44-0400 Respiratory rate 18 /min PA NA Garrido PA Work Phone: 3(894)884-320861 [place] [address] 04-05-2023 09:44-0400 SaO2% (BldA) [Mass fraction] 99 % PA NA Garrido PA Work Phone: [facility] 04-05-2023 09:44-0400 Systolic blood pressure 106 mm[Hg] PA NA Garrido PA Work Phone: [facility] 02-20-2023 21:08-0400 Diastolic blood pressure 80 mm[Hg] PA NA Garrido PA Work Phone: [facility] 02-20-2023 21:08-0400 Heart rate 61 /min PA NA Garrido PA Work Phone: 7(159)030-192761 [place] [address] 02-20-2023 21:08-0400 Respiratory rate 18 /min PA NA Garrido PA Work Phone: 0(272)270-185533 [place] [address] 02-20-2023 21:08-0400 SaO2% (BldA) [Mass fraction] 97 % PA NA Garrido PA Work Phone: 8(127)504-066833 [place] [address] 02-20-2023 21:08-0400 Systolic blood pressure 113 mm[Hg] PA NA Garrido PA Work Phone: 0(225)771-794133 [place] [address] 02-20-2023 17:01-0400 Body mass index (BMI) [Ratio] 21.4 kg/m2 PA NA Garrido PA Work Phone: 5(916)280-097833 [place] [address] 02-20-2023 17:01-0400 Body weight 60.4 kg PA NA Garrido PA Work Phone: 4(227)142-469433 [place] [address] 02-20-2023 16:57-0400 Body height 167.64 cm PA NA Garrido PA Work Phone: 3(564)554-351033 [place] [address] 02-20-2023 16:57-0400 Body temperature 97.2 [degF] PA NA Garrido PA Work Phone: 0(610)823-916733 [place] [address] 02-06-2023 11:22-0400 Body mass index (BMI) [Ratio] 39.6 kg/m2 PA NA Garrido PA Work Phone: 5(239)799-292233 [place] [address] 02-06-2023 11:22-0400 Body temperature 98.6 [degF] PA NA Garrido PA Work Phone: 0(452)391-635333 [place] [address] 02-06-2023 11:22-0400 Body weight 111.24 kg PA NA Garrido PA Work Phone: 3(699)497-056533 [place] [address] 02-06-2023 11:22-0400 Diastolic blood pressure 80 mm[Hg] PA NA Garrido PA Work Phone: 2(256)895-291233 [place] [address] 02-06-2023 11:22-0400 Heart rate 78 /min PA NA Garrido PA Work Phone: [facility] 02-06-2023 11:22-0400 Respiratory rate 14 /min PA NA Garrido PA Work Phone: [facility] 02-06-2023 11:22-0400 SaO2% (BldA) [Mass fraction] 95 % PA NA Garrido PA Work Phone: [facility] 02-06-2023 11:22-0400 Systolic blood pressure 120 mm[Hg] PA NA Garrido PA Work Phone: [facility] Encounters Encounter Date Encounter Type Care Provider Facility Start: 12-04-2023 End: 12-04-2023 ambulatory Apryl Amherst Facility:[facility] Start: 11-22-2023 End: 11-22-2023 ambulatory Apryl Neva Facility:[facility] Start: 05-16-2023 End: 05-16-2023 ambulatory PA M Prashant Petersonon PA Work Phone: [facility] Work Phone: Start: 05-16-2023 End: 05-16-2023 Patient encounter procedure PA NA Garrido PA Work Phone: [facility] Work Phone: Start: 04-17-2023 End: 04-17-2023 ambulatory PA M Prashant Petersonon PA Work Phone: [facility] Work Phone: Start: 04-17-2023 End: 04-17-2023 Patient encounter procedure PA NA Garrido PA Work Phone: [facility] Work Phone: Start: 04-05-2023 End: 04-05-2023 ambulatory PA M Prashant Petersonon PA Work Phone: [facility] Work Phone: Start: 04-05-2023 End: 04-05-2023 Patient encounter procedure PA NA Garrido PA Work Phone: [facility] Start: 04-05-2023 End: 04-05-2023 Patient encounter procedure DAIJA CHOE Work Phone: [facility] Work Phone: Start: 02-20-2023 End: 02-20-2023 Emergency department patient visit DAIJA CHOE Work Phone: [facility] Work Phone: Start: 02-06-2023 End: 02-06-2023 Patient encounter procedure DAIJA CHOE Work Phone: [facility] Work Phone: Procedures Date Procedure Procedure Detail Performing Clinician Start: 04-17-2023 US scan of thyroid DAIJA CHOE Work Phone: Start: 04-17-2023 Screening mammography P Naif CHOE Work Phone: Plan of Treatment Date Care Activity Detail Author Start: 04-17-2023 MG Breast - bilatera l Screening [facility] Start: 04-17-2023 Screening mammography SCRN PAXTON M (CAD)W/ROXANNA BILAT [facility] Start: 04-05-2023 Patient referral [facility] Work Phone: MG Breast - bilatera l Screening [facility] Patient Education Causes of Sync ope Dehydration [facility] Work Phone: Patient referral [facility] Work Phone: Tobacco use cessatio n education [facility] US Thyroid gland [facility] Payers Date Payer Category Payer Self-pay 2023 Unknown [id number] Self-pay [employer] INSURANCE [id number] Unknown [id number] Unknown [id number] Unknown [id number] Social History Date Type Detail Facility Start: 02-20-2023 End: 05-17-2023 Tobacco smoking status NHIS Unknown if ever smoked [facility] Start: 1975 Sex Assigned At Female [facility] NEGATED: Highlighted row [facility] Mental Status Date Assessment Result Facility 02-20-2023 Cognitive function Level Of Cons ciousness Awake;Alert;Appropriate;Follow s Commands [facility] Work Phone: Discharge summary 02-20-2023 Note Date & Type Note Facility 02-20-2023 Discharge summary Note Date/Time February 20, 2023 7:24pm [facility] Medical Records Department [address] [place] [address] Emergency Department Summary 02/20/23 MR#: [id number] Acct: [id number] Name: CARLYN BECKER Rep #:[id number] : 1975 47 From: Shane Guillory MD PCP: DAIJA Pool Status:REG E R Location: ED HPI History of Present Illness Chief Complaint: Syncope Narrative Narrative: Patient presents with lightheadedness when she stands up. She has had a diarrheal illness over the past 4 days, she has had fevers nausea vomiting and watery diarrhea 10-15 episodes per day. This has basically resolved since yesterday although patient still feels quite lightheaded. She was walking on the street and did sustain a syncopal episode, it was witnessed by bystanders and per EMS it seems like a brief loss of consciousness with a relatively rapid full recovery. No reported head injury. Patient does not have a headache. No palpitation patient is denying abdominal pain or any other injuries. [facility] Medical History (Updated 02/20/23 @ 20:[address] Shane Guillory MD) Arthritis Contact with and (suspected) exposure to other viral communicable diseases URI (upper respiratory infection) Home Medications NK 02/20/23 [History Last Taken Unknown] Allergy/AdvReac Type Severity Reaction Status Date / Time No Known Allergies Allergy Unverified 02/06/23 11:23 Family History (Updated 02/06/23 @ 11:27 by Aydee Castellano) Other Cancer Depression Diabetes Heart disease Hypertension Thyroid disorder Surgical History History of tonsillectomy and adenoidectomy Social History Smoking Status: Light Smoker (<10/day) ROS ROS ED ROS Narrative Past medical history: Reviewed Medications: Reviewed Social history: Noncontributory Review of systems: All systems negative except as indicated General: No fever Fevers that resolved. Lightheadedness is present visual changes ENT: No upper airway congestion, normal voice Neck: No neck pain Cardiovascular: No chest pain. No palpitations Respiratory: No shortness of breath or cough Gastrointestinal: GI symptoms that resolved Genitourinary: No dysuria Musculoskeletal: Denies myalgias no difficulty with ambulation Skin: No rash Neurological: No memory loss, confusion or any focal weakness Hematologic: No easy bleeding or easy bruising EXAM Physical Exam Narrative Exam Narrative: Physical exam General: Well nourished, Well developed, No Acute Distress Head: Normocephalic, Atraumatic Eyes: Conjunctiva not pale ENT: Dry mucous membranes Neck: Supple, Nontender, No lymphadenopathy Cardiovascular: Regular rate, Regular rhythm Respiratory: No distress, CTA bilaterally Abdomen: Soft, Nontender, Nondistended Back: Nontender, Normal Inspection. Negative for: CVA tenderness Extremities: Nontender, No edema Skin: Normal color, No rash Neurological: Alert, Normal Strength, Normal Sensation Psychological: Normal affect Const Vital Signs: 02/20/23 16:57 02/20/23 17:07 02/20/23 18:11 Temperature 97.2 F L Temperature Source Temporal Pulse Rate 88 69 Respiratory Rate 16 14 Respiratory Effort Normal Respiratory Pattern Normal Blood Pressure 109/68 120/74 Blood Pressure Mean 81 89 Pulse Ox 99 92 Oxygen Delivery Method Room Air Room Air 02/20/23 19:30 02/20/23 19:59 Temperature Temperature Source Pulse Rate 58 L 61 Respiratory Rate 18 17 Respiratory Effort Respiratory Pattern Blood Pressure 112/74 148/83 H Blood Pressure Mean 86 104 Pulse Ox 94 94 Oxygen Delivery Method Room Air Room Air MDM MDM MDM Narrative Medical decision making narrative: Patient is given IV fluids and significantly improved. Otherwise I do not see any other reasons for her syncopal episode there seems to be no cardiac reasons. Electrolytes are normal. Patient appears well. I will discharge her in stablecondition she likely had a gastroenteritis which resolved but she still had residual dehydration. Lab Data Labs: Laboratory Results - last 24 hr 02/20/23 19:04 WBC 5.0 RBC 4.83 Hgb 14.5 Hct 42.8 MCV 88.6 MCH 30.0 MCHC 33.9 RDW Std Deviation 41.8 RDW Coeff of Xavier 12.8 Plt Count 198 MPV 10.4 Immature Gran % (Auto) 0.400 Neut % (Auto) 49.9 Lymph % (Auto) 34.6 [place] % (Auto) 12.1 H Eos % (Auto) 2.2 Baso % (Auto) 0.8 Absolute Neuts (auto) 2.5 Absolute Lymphs (auto) 1.72 Nucleated RBC % 0 Sodium 140 Potassium 2.8 L Chloride 105 Carbon Dioxide 24.0 Anion Gap 11 BUN 16 Creatinine 1.09 H Estim Creat Clear Calc 59.09 Est GFR (MDRD) Af Amer 69 Est GFR (MDRD) Non-Af 57 L BUN/Creatinine Ratio 14.7 Glucose 127 H Calcium 8.8 Total Bilirubin 0.60 AST 39 H ALT 50 Alkaline Phosphatase 58 Total Protein 6.9 Albumin 3.4 Globulin 3.5 Albumin/Globulin Ratio 1.0 Urine Color Yellow Urine Clarity Sl. Cloudy Urine pH 5.0 Ur Specific [place] 1.025 Urine Protein 30 H Urine Glucose (UA) Normal Urine Ketones 15 H Urine Occult Blood 10 H Urine Nitrite Negative Urine Bilirubin 1 H Urine Urobilinogen 4 H Ur Leukocyte Esterase 25 H Urine RBC 0-5 SEEN Urine WBC 0-5 SEEN Ur Squamous Epith Cells 0-5 SEEN Urine Bacteria 1+ Hyaline Casts 10-25 SEEN Urine Mucus 1+ Urine Test Negative Discharge Plan Triage Chief Complaint: Syncope ED Provider: Shane Guillory Dx/Rx/DC Orders Clinical Impression: Acute dehydration, Syncope Instructions: Causes of Syncope, Dehydration Prescriptions: No Action NK Primary Care Provider: Juice Garrido Referrals: Juice Garrido, DAIJA [Primary Care Provider] - 3-5 Days Disposition Disposition: Home, Self Care What to do if you have Problems For any increased pain, shortness of breath, bleeding, nausea or vomiting, chestpain, or any unexpected problems, contact your Primary Care Provider. Call [facility] ([phone]) or report to the closest Emergency Room. Call 911 if necessary. 02/20/232055 <Electronically signed by Shane Guillory MD> Cosigner Signature (if applicable): CC: DAIJA Pool ~ Signed [facility] Work Phone: Evaluation note Note Date & Type Note Facility Evaluation note Diagnosis Onset Date Contact with and (suspected) exposure to other viral communicable diseases acute URI (upper respiratory infection) acute [facility] Work Phone: Evaluation note Note Date & Type Note Facility Evaluation note Diagnosis Onset Date Contact with and (suspected) exposure to other viral communicable diseases resolv ed URI (upper respiratory infection) resolved Smokes cigarettes acute Thyroid nodule acute Immunization declined noneac tive Moderate major depression no neactive Screening for colon cancer n oneactive Screening for cardiovascular condition noneactive Establishing care with new d octor, encounter for noneactive Screening for cervical cancer noneactive Moderate anxiety noneactive Perimenopausal noneactive Screening for breast cancer noneactive Hypokalemia noneactive [facility] Work Phone: Evaluation note Note Date & Type Note Facility Evaluation note Diagnosis Onset Date Contact with and (suspected) exposure to other viral communicable diseases resolv ed URI (upper respiratory infection) resolved Smokes cigarettes acute Thyroid nodule acute Immunization declined noneac tive Moderate major depression no neactive Screening for colon cancer n oneactive Screening for cardiovascular condition noneactive Establishing care with new d octor, encounter for noneactive Screening for cervical cancer noneactive Moderate anxiety noneactive Perimenopausal noneactive Screening for breast cancer noneactive Hypokalemia noneactive Thyroid nodule acute [facility] Work Phone: Chief Complaint and Reason for Visit Chief Complaint SORE THROAT/COUGH/NA USEA SYNCOPE Reason for Visit Contact with and (harrison spected) exposure to other viral communicable diseases URI (upper respiratory infection) Chief Complaint SORE THROAT/COUGH/NA USEA SYNCOPE EST NEW PT - PPW SENT Reason for Visit Contact with and (harrison spected) exposure to other viral communicable diseases URI (upper respiratory infection) Smokes cigarettes Thyroid nodule Immunization declined Moderate major depression Screening for colon cancer Screening for cardiovascular condition Establishing care with new doctor, encounter for Screening for cervical cancer Moderate anxiety Perimenopausal Screening for breast cancer Hypokalemia Chief Complaint SORE THROAT/COUGH/NA USEA SYNCOPE EST NEW PT - PPW SENT SCREENING Reason for Visit Contact with and (harrison spected) exposure to other viral communicable diseases URI (upper respiratory infection) Smokes cigarettes Thyroid nodule Immunization declined Moderate major depression Screening for colon cancer Screening for cardiovascular condition Establishing care with new doctor, encounter for Screening for cervical cancer Moderate anxiety Perimenopausal Screening for breast cancer Hypokalemia Chief Complaint SORE THROAT/COUGH/NA USEA SYNCOPE EST NEW PT - PPW SENT SCREENING THYROID NODULE Reason for Visit Contact with and (harrison spected) exposure to other viral communicable diseases URI (upper respiratory infection) Smokes cigarettes Thyroid nodule Immunization declined Moderate major depression Screening for colon cancer Screening for cardiovascular condition Establishing care with new doctor, encounter for Screening for cervical cancer Moderate anxiety Perimenopausal Screening for breast cancer Hypokalemia Thyroid nodule Family History No Family History Records Found Relationship Condition Age at Onset Recorded Date/T buck Not Specified Diabetes mellitus Unknown Depression Unknown Cardiac disease Unknown Malignant neoplasm Unknown Hypertension Unknown Disorder of thyroid Unknown Relationship Condition Age at Onset Recorded Date/T buck Not Specified Depression Unknown Malignant neoplasm Unknown Hypertension Unknown grandfather Alcohol abuse Unknown Arthritis Unknown Cerebrovascular accident (CVA) Unknown Disorder of respiratory system Unknown mother Anemia Unknown Asthma Unknown Cardiac disease Unknown Diabetes mellitus Unknown father Alcohol abuse Unknown grandmother Arthritis Unknown Disorder of thyroid Unknown Malignant neoplasm of ovary Unknown uncle Myocardial infarction Unknown aunt Malignant neoplasm of breast Unknown Advance Directives No Advanced Directives Records Found Advance Directive Response Recorded Date/ Time Living Will No February 20 023 5:07pm Power of Roofer [place] No February 20, 2023 5:07pm Advance Directive Response Recorded Date/ Time Living Will No February 20 023 4:07pm Power of Roofer [place] No February 20, 2023 4:07pm Summary Purpose Additional Source Comments Care Teams (unrecognized sec tion and content) Team Status: Active Member Role Status Dates Dr. Sandie Sandoval DO Family Provider Active DAIJA Emery Primary Care Provider Active Team Status: Inactive Member Role Status Dates DAIJA Emery Primary Care Provider, Referri Provider Active DAIJA Cooper Attending Provider Active Team Status: Inactive Member Role Status Dates DAIJA Emery Primary Care Provider Active Dr. Shane Guillory MD Emergency Provider Active Team Status: Active Member Role Status Dates Dr. Sandie Sandoval , DO Family Provider Active Dr. Apryl Hooks MD Primary Care Provider Active Team Status: Inactive Member Role Status Dates DAIJA Emery Primary Care Provider, Referri ng Provider Active Dr. Apryl Hooks MD Attending Provider Active Team Status: Inactive Member Role Status Dates DAIJA Emery Primary Care Provider Active Dr. Shane Guillory MD Attending Provider, Emergency Pr ovider Active Team Status: Inactive Member Role Status Dates Dr. Apryl Hooks MD Primary Care Pro vider, Attending Provider, Referring Provider Active Team Status: Inactive Member Role Status Dates Dr. Apryl Hooks MD Primary Care Provider, Referri ng Provider Active Dr. Husam Dixon MD Attending Provider Active Team Status: Inactive Member Role Status Dates Dr. Apryl Hooks MD Primary Care Provider Active Dr. Husam Dixon MD Attending Provider Active Goals (unrecognized section and content) Goals may be documented in a n alternate sectionGoals may be documented in an alternate sectionGoals may be documented in an alternate sectionGoals may be documented in an alternate section INFORMATION SOURCE (unrecogn ized section and content) DATE CREATED AUTHOR 07/11/2024 [facility] FOR RECORDS PERTAINING TO PATIENTS WHO ARE OR HAVE BEEN ENROLLED IN A CHEMICAL DEPENDENCY/SUBSTANCEABUSE PROGRAM, SOME INFORMATION MAY BE OMITTED. This clinical summary was aggregated from multiple sources. Caution should be exercised in using it in the provision of clinical care. This summary normalizes information from multiple sources, and as a consequence, information in this document may materially change the coding, format and clinical context of patient data. In addition, data may be omitted in some cases. CLINICAL DECISIONS SHOULD BE BASED ON THE PRIMARY CLINICAL RECORDS. [employer] provides no warranty or guarantee of the accuracy or completeness of information in this document.
== END 2024-12-28 12:25 | disposition home or self-care (01) ==
LOC: ED 12:15
PROVIDERS: Emergency Provider Emergency Medicine; PCP Internal Medicine; Visit Provider Emergency Medicine
DX: S91.205A Unspecified open wound of left lesser toe(s) with damage to nail, initial encounter (principal); M79.675 Pain in left toe(s); X58.XXXA Exposure to other specified factors, initial encounter; Y93.01 Activity, walking, marching and hiking; F17.210 Nicotine dependence, cigarettes, uncomplicated; Z79.899 Other long term (current) drug therapy
CPT/HCPCS: 99282